=== PATIENT | female | born 1965 | race Caucasian/White ===

== ENCOUNTER → 2017-05-21 | Outpatient (CLI) | payer MEDICAID ==
[~2017-05-21] VITALS: Ht 162.6 cm; Wt 72.7 kg
[~2017-05-21] MED LIST: ASPIRIN 81M81 MG/TA2 PO; ATIVAN0.5 MG PO; OXYCODONE PO; TYLENOL PM EX-1 EACH PO; VITAMIN D 90 MG1 TA1 PO
[2017-05-21 13:02] VITALS: BP 133/97
== END ==
LOC: AMSURD 12:53
DX: Z51.81 Encounter for therapeutic drug level monitoring (principal); Z79.2 Long term (current) use of antibiotics; Z45.2 Encounter for adjustment and management of vascular access device